=== PATIENT | female | born 1950 | race Caucasian/White ===

== ENCOUNTER 2016-08-13 14:29 | Inpatient (IN) | payer MEDICARE, BC ==
--- NOTE | 2016-10-19 09:06 | HP ---
DATE OF CLINIC: 10/10/2016 MELY HARE : 1950 PLANNED PROCEDURE: Left Total Hip Arthroplasty DATE OF PROCEDURE: October 22, 2016 SURGEON: Je Azul M.D. PCP: Dr. Bakari Negrete ACTIVE PROBLEMS * Allergic Rhinitis * Breast Cancer - Double Massectomy 1994 * Cervicalgia - with hx of bulging disks * Chronic Obstructive Pulmonary Disease Mild * Chronic Sinusitis * Constipation * Diabetes Mellitus Type 2 Without Complication * Esophageal Reflux * Essential Hypertension Benign * Gerd * Herpes Simplex * Lateral Epicondylitis (tennis Elbow) * Neuralgia Postherpetic - right flank * Nonorganic Sleep Apnea Obstructive * Obesity * SPRAIN HIP & THIGH NEC HISTORY OF PRESENT ILLNESS Mely Hare is a 66 year old female. * Medication list reviewed with patient allergy list reviewed with patient. Mrs. Hare is in today pre-operatively for her upcoming left total hip arthroplasty with Dr. Azul on 10/16/16. Patient presents in good spirits but is moderately anxious about her upcoming procedure. She recently got over a cough that she states has been going around. She denies associated symptoms or other recent illness. Patient states she had pulmonary emboli approximately 12 years ago without a known cause. She was placed on Warfarin for a period of time. She denies having lower extremity DVT's prior or at any known point in time. She has not had PE or DVT associated with surgery. She reports a history of shingles intermittently painful along the right chest wall especially after waking following surgery. When pressed further this hasn't occurred since her mastectomy's in 1994. She prefers general anesthesia secondary to a bad experience with spinal anesthesia during her remote . She notes the only tape she can tolerate is 3M Transpore. She is insistent on home health PT for her initial post-op rehabilitation period as her vehicle sets low and would violate hip precautions. Patient's recent consult with Dr. Azul follows: 65-year-old female who I saw initially 08/09/15 for evaluation of left hip. Exam and radiographs were consistent with degenerative disease with the medial and superomedial joint space with periarticular sclerosis. Less significant changes contralateral side. This was her primary limiting problem although she also has degenerative disease of her knees. She was sent to Dr. Samuels for evaluation. She had an intraarticular ultrasound guided injection on 11/30/15 with fairly significant temporary improvement. Unfortunately, she presently is again feeling limited primarily with weight-bearing activities. She also has some rest pain. The problem is most significant with startup, but she also has been unable to stand for long periods. She has been able to tolerate a walking program 30 minutes on a treadmill approximately 2 1/2 miles per hour every other day, but anymore than that "makes her very sore". Pain is primarily in the groin, it is non-radicular. She does have lateral radiation. She is interested in exploring definitive management options. Comorbidities include obesity, insulin dependent diabetes, hypertension. She has a history of a pulmonary embolist in 2003. She is not anticoagulated. She also has a remote history of breast carcinoma s/p bilateral mastectomies in the mid . She is a non-smoker having quit over 25 years ago. She does drink approximately 2 glasses of wine daily. CURRENT MEDICATION * *DME Miscellaneous (not specified) as directed - Breast prosthetics x2Dx: breast cancer, Hx of double mastectomy. C50.919, Z90.13, 99 days, 0 refills * *Supplement Miscellaneous 1 once a day probiotic metamucilgarlic vit dvit [id number] complex with coscal for bones, 0 days, 0 refills * Benicar HCT 40-12.5 MG Tablet 1 once a day, 90 days, Prescribe As Needed. * Fluticasone Propionate 50 MCG/ACT Suspension Use 2 sprays in each nostril daily as directed, 90 days, Prescribe As Needed. * Latanoprost 0.005 % Solution 1 once a day 0 days, 0 refills * Pantoprazole Sodium 40 MG Tablet Delayed Release 1 once a day, 90 days, Prescribe As Needed. * Singulair 10 MG Tablet 1 once a day, 90 days, Prescribe As Needed. PAST MEDICAL/SURGICAL HISTORY Reported: No recent change in medical history. Medical: Cholesterol problems. Stomach problems ulcers and GERD. Arthritic joint problems, cancer breast and skin, Diabetes Mellitus, history of Arthritis, Hypertension, and Venous thrombosis lung 2003. Surgical / Procedural: Eye Surgery cataract surgery on both eyes 09/2014 and Caesarean Section 1984. Tests: Blood pressure was high. : 4, para 2, aborta 2, and history of the : section 1984. Diagnoses: Hypertension Venous thrombosis. Respiratory disorder borderline COPD. Gastric ulcer. Menopause. Diabetes mellitus Type 2 diabetes mellitus Was recently diagnosed with type II diabetes which is diet controlled. Cancer basal cell cancer - tip of nose. 2012 Breast cancer BL mastectomy/chemo Cataracts BL 2014, COPD. Surgical: * Mastectomy bilateral: R 1994, L 1995 * Appendectomy 1980 * Hysterectomy 1984 1984 SOCIAL HISTORY Behavioral: Daily coffee consumption 3-4 cups per day, former smoker quit 08/30/87, and non-smoker quit smoking stopped in August 1987 after smoking 1 pack a day for 20 years. Smoking status: Former smoker. Alcohol: Alcohol 2 glasses of wine a day and alcohol use. Home Environment: Lives with spouse. Work: Occupation retired. ALLERGIES * Albuterol Reaction: body shakes * Amlodipine Reaction: Very high BP * Atenolol * Bandaging Tape * Benzonatate Reaction: Asthma/Shortness of Breath * Biaxin * Clarithromycin Reaction: Skin Rashes/Hives * Codeine Derivatives * Dicloxacillin * Erythromycin * Ibuprofen * Lisinopril Reaction: Coughing * Losartan Potassium * Lovastatin * Penicillins * Pseudoephedrine HCl Reaction: Nausea/Vomiting/Diarrhea * Sulfur * Tarsha Sue FAMILY HISTORY Stroke syndrome Paternal: Alcoholism Maternal: Osteoarthritis rheumatoid Paternal grandfather's: Diabetes mellitus Paternal grandmother's: Cancer breast Maternal grandfather's: Osteoarthritis rheumatoid Stroke syndrome Maternal grandmother's: Migraine headache Fraternal: Respiratory disorder COPD Sororal: Respiratory disorder COPD Cancer breast cancer-mother REVIEW OF SYSTEMS Systemic: No fever and no recent weight change. Head: No head symptoms. Cardiovascular: Cardiovascular symptoms HTN. Pulmonary: No pulmonary symptoms. Gastrointestinal: Gastrointestinal symptoms GERD, HH. Psychological: Psychological symptoms anxiety. Skin: No skin lesions and no rash. PHYSICAL FINDINGS * Vitals taken 10/10/2016 11:36 am BP-Sitting L 164/91 mmHg 100 - 120/56 - 80 BP Cuff Size Regular Pulse Rate-Sitting 83 bpm 50 - 100 Temp-Oral 97.4 F 96 - 101 Height 61.5 in 59 - 68 Weight 203 lbs 96 - 178 Body Mass Index 37.7 kg/m2 Body Surface Area 1.91 m2 Pain Level 4 Ears, Nose, Throat: * ENT: normal. Lungs: * Clear to auscultation. Cardiovascular: * System: normal. Abdomen: * Normal. Neurological: Motor: * Dominant Hand = Right Hand. Patient is an obese female no in acute distress, normal-appearing mood and affect. She has a stiff, antalgic gait walking with a flexed, wide-based posture. This is more notable at startup. The pelvis is level.. Negative Trendelenburg. Evaluation focused on the left hip shows tenderness over the trochanter, mildly tender in the groin, NT in the sciatic notch. ROM is 90 degrees of flexion, 40 degrees of abduction, 45 degrees ER, 10 degrees IR with exacerbation of groin pain. She can adduct past the midline and extend fully. Thigh is soft and NT with no atrophy or asymmetry compared to the contralateral side. Muscle contour is relatively poor. Knee exam shows neutral alignment, medial greater than lateral diffuse tenderness. Motion 0-115 degrees with a normal ligamentous exam. She is NT over the anteromedial proximal tibia. Calf is soft and NT. Distal light touch sensation and motor function are grossly intact and symmetric. Pulses are palpable. Sitting SLR is negative. Right hip girdle shows non-irritable motion with no focal tenderness. TESTS Radiographs obtained today of the left hip and pelvis, compared to prior films from 06/07/15. This shows mild progression, significant medial narrowing, periarticular sclerosis and a large superolateral acetabular osteophyte. There is also an inferomedial osteophyte. Contralateral hip has mild changes. ASSESSMENT * Localized primary osteoarthritis of the right hip DJD, left hip. THERAPY * Patient fall risk screen negative. * Patient eligible for fall risk assessment. * Patient received fall risk assessment. PLAN * OTHER OxyCONTIN 10 MG T12A, 1 po q 12 hours-TO BE USED FOR AFTER SURGERY, 10 days, 0 refills TraMADol HCl 50 MG TABS, 1 po q 6 hours prn pain-TO BE USED FOR AFTER SURGERY, 5 days, 0 refills OxyCODONE HCl 5 MG TABS, 1-2 po q 4 hours for break thru pain if needed-TO BE USED FOR AFTER SURGERY, 5 days, 0 refills Arixtra 2.5 MG/0.5ML SOLN, 1 once a day-TO BE USED FOR AFTER SURGERY, 10 days, 0 refills Vistaril 25 MG CAPS, 1or 2 tablets every 4 to 6 hours as needed, 5 days, 0 refills Lovenox 30 MG/0.3ML SOLN, 30mg subQ every 12 hours, 16 days, 0 refills * Total hip replacement -Left Discussed with patient in detail the limitations, expectations as well as risks and possible complications of surgery including, but not limited to wound problems or infection, neurovascular injury, continued hip pain or dysfunction, postop instability including the possibility of dislocation and/or postop leg length discrepancy, and the possibility of prosthetic wear or failure over time that may require additional operative or non-operative treatment. Patient also realizes the perioperative risks including risks associated with anesthesia and would like to proceed. A full PAR conference was held, questions and concerns addressed and informed consent was obtained. Patient will be sent from my office for completion of the preoperative workup. [facility] consult for perioperative medical management Patient will use Enoxaparin 30 mg subcutaneous every 12 hours for 10 days post-op for DVT prophylaxis. Patient would like their postop PT through [facility] initially with right total hip arthroplasty protocol WBAT, posterior hip precautions. CARE TEAM Bakari Negrete DO [facility] CC: Bakari Negrete DO [facility]
[2016-10-22] MEDS ORDERED: CELECOXIB 200 MG CAPSULE PO ONE (05:30)
[2016-10-22] MEDS ORDERED: GABAPENTIN 600 MG TABLET PO ONE (05:30)
[2016-10-22] MEDS ORDERED: BUPIVACAINE 0.25% (MDV) 24 ML, MORPHINE SULFATE 8 MG, EPINEPHRINE 0.3 MG in SODIUM CHLO... IF PRN (05:30)
[2016-10-22] MEDS ORDERED: TRAMADOL HCL 50 MG TABLET PO ONE (05:30)
[2016-10-22] MEDS ORDERED: ONDANSETRON 4 MG/2ML 2 ML VIAL IV ONE (05:30)
[2016-10-22] MEDS ORDERED: CLINDAMYCIN 900 MG PREMIX 100 ML IV PRN (05:30)
[2016-10-22] MEDS ORDERED: CLONIDINE HCL 0.1 MG/24 HR (7 DAY PATCH) TD SCH (05:30)
[2016-10-22] MEDS ORDERED: BUPIVACAINE 0.25% (MDV) 20 ML in SODIUM CHLORIDE 0.9% FLUSH 20 ML IF PRN (05:30)
[2016-10-22] MEDS ORDERED: FAMOTIDINE 20 MG TABLET PO ONE (05:30)
[2016-10-22] MEDS ORDERED: POLYMYXIN B SULFATE 500,000 UNITS, BACITRACIN 25,000 UNITS in SODIUM CHLORIDE 3 L IRRIG... IR PRN (05:30)
[2016-10-22] MEDS ORDERED: TRANEXAMIC ACID 1,000 MG in SODIUM CHLORIDE 0.9% 100 ML IV PRN (05:30)
[2016-10-22] MEDS ORDERED: OXYCODONE HCL 10 MG TAB.SR PO ONE ×2 (05:30→06:36)
[2016-10-22] MEDS ORDERED: LACTATED RINGERS 1,000 ML ONE (05:36)
[2016-10-22] MEDS ORDERED: IV START KIT ONE ×2 (05:36→06:35)
[2016-10-22] MEDS ORDERED: CLINDAMYCIN 900 MG PREMIX 50 ML IV ONE (06:11)
[2016-10-22] MEDS ORDERED: FAMOTIDINE 20 MG TABLET ONE (06:36)
[2016-10-22] MEDS ORDERED: ONDANSETRON 4 MG/2ML 2 ML VIAL ONE (06:36)
[2016-10-22] MEDS ORDERED: TRAMADOL HCL 50 MG TABLET ONE (06:36)
[2016-10-22] MEDS ORDERED: CLONIDINE HCL 0.1 MG/24 HR (7 DAY PATCH) TD ONE (06:37)
[2016-10-22] MEDS ORDERED: CELECOXIB 200 MG CAPSULE ONE (06:37)
[2016-10-22] MEDS ORDERED: GABAPENTIN 600 MG TABLET ONE (06:37)
[2016-10-22] MEDS ORDERED: MIDAZOLAM HCL 5 MG/5 ML VIAL ONE (06:40)
[2016-10-22] MEDS ORDERED: FENTANYL 100 MCG/2 ML VIAL ONE (06:40)
[2016-10-22] MEDS ORDERED: LIDOCAINE 1% (PRES FREE) 5 ML VIAL ONE (07:05)
[2016-10-22] MEDS ORDERED: BUPIVACAINE 0.5% (PRES FREE) 30 ML VIAL ONE (07:26)
[2016-10-22] MEDS ORDERED: SPINAL PROCEDURAL TRAY 1 EACH ONE (07:27)
[2016-10-22] MEDS ORDERED: PROPOFOL 20 ML IV ONE ×4 (07:51→09:29)
[2016-10-22] MEDS ORDERED: KETAMINE HCL UD SYRINGE 100 MG/2 ML IV ONE (07:52)
[2016-10-22] MEDS ORDERED: ONDANSETRON 4 MG/2ML 2 ML VIAL IV PRN (08:26)
[2016-10-22] MEDS ORDERED: ATROPINE SULFATE 0.4 MG/1 ML VIAL IV PRN (08:26)
[2016-10-22] MEDS ORDERED: PROMETHAZINE HCL 25 MG/ML VIAL IM PRN (08:26)
[2016-10-22] MEDS ORDERED: FENTANYL 100 MCG/2 ML VIAL IV PRN (08:26)
[2016-10-22] MEDS ORDERED: NALOXONE HCL 0.4 MG/ML VIAL IV PRN (08:26)
[2016-10-22] MEDS ORDERED: LACTATED RINGERS 1,000 ML IV SCH (08:30)
--- NOTE | 2016-10-22 09:59 | PCMBPN ---
Brief Post Op Note: Date of Procedure: 10/22/16 Preoperative Diagnosis: DJD left hip Postoperative Diagnosis: same Procedure: left DALE Surgeon: Je Azul MD Assist: Essence Anesthesia: spinal (Bahrke) Condition: stable to PAR Complications: none IV Fluids: 800 mLs of LR Urine Output: 150 mLs Estimated Blood Loss: 200 mLs Tourniquet Time: [N/A] Specimens: [N/A] Implants: Trilock Drains: none
--- NOTE | 2016-10-22 10:53 | OP ---
MELY MACIAS [id number] : 1950 DATE OF SURGERY: October 22, 2016 PREOPERATIVE DIAGNOSIS: Degenerative joint disease left hip POSTOPERATIVE DIAGNOSIS: Same PROCEDURE: Left Total Hip Arthroplasty COMPONENTS: Tri-Lock size 2 standard offset press-fit femoral stem with a 36mm +1.5 Delta ceramic femoral head, 52mm [place] 100 press-fit acetabular shell with a neutral cross-linked polyethylene liner. SURGEON: Latha ASSIST: Chris (MAURO) ANESTHESIA: Spinal per Bahrke EBL: 200 cc URINE OUTPUT: 150 cc IVF REPLACEMENT: Per anesthesia, 800 cc crystalloid. DRAINS: None COMPLICATIONS: None HISTORY: Briefly, patient is a 66-year-old female with clinical and radiographic evidence most consistent with degenerative joint disease of their left hip. They have failed traditional nonoperative measures and at this point desire elective surgical management. For additional details, refer to previously dictated Preoperative History and Physical Exam. A full PAR conference was held, questions and concerns were addressed, and informed consent was obtained. FINDINGS: Fairly anteverted cup, some posterior-superior acetabular osteophytes as well as inferior calcified labrum. There were areas of eburnation in the femoral head. She still had fairly poor motion under anesthesia. PROCEDURE: The patient was taken to the operating room and after previously described anesthesia was placed in the lateral decubitus position on the operating room table and held with the peg board positioner. Liborio prominences were well padded and an axillary roll was placed. The left hip girdle and lower extremity were then prepped and draped out in the usual sterile fashion. Preoperative antibiotics were given empirically. Intraoperative DVT prophylaxis consisted of bilateral mechanical foot pumps. Personal filtration suits were used as was a closed room environment. An oblique ten centimeter incision was made using the minimally invasive guide posterior and extending slightly proximal to the greater trochanter. I extended this another 1 or 2 cm during the dissection given her obesity. We dissected through subcutaneous tissue down to the gluteus fascia. Electrocautery was used at this point and throughout the duration of the case to establish and maintain hemostasis. The gluteus fascia was incised in line with the incision and the muscle fibers split to expose the underlying bursal tissue. Tranexamic acid was infiltrated over 10 minutes prior to incision, 1 gram dose per protocol. A similar 2nd dose was given at initiation of closure. A deep self retaining field retractor was placed. The short external rotators were identified, the piriformis was quite small. This was tagged and reflected with the underlying capsule which was reflected in a U fashion off the femoral neck and tagged as well for later repair. Release of the capsule allowed for dislocation of the hip and the femoral head was brought up into the operative field. A femoral neck cut was made proximal to the lesser trochanter as per our preoperative templating. Given her large size we had an inadvertent small laceration of the skin from the back of the saw blade that was closed at the completion of the procedure, without incident. We then translated the femur anteriorly exposing the acetabulum. The remaining labrum was excised circumferentially. Osteophytes were debrided under direct visualization. We reamed to the true acetabular floor and then incrementally up to a 51 as per our preoperative plan at which point we noted circumferential bleeding cancellous bone. This was trialed at approximately 45 degrees of abduction and 20 degrees of anteversion with good fit and stability matching her [place] position. We then impacted the true acetabular component which was seated completely. An apical hole cover was placed and we impacted the neutral crosslinked polyethylene liner. Attention was then directed back to the femur. The remaining soft tissue was cleared from the piriformis fossa and we use a rongeur and box osteotome to enter the proximal femoral canal followed by the canal seeker and then the broach only system up to a size 3 initially. This was trialed, but still fairly tight. This was trialed with a -2. The hip was then reduced with good stability to 70 degrees of internal rotation in 90 degrees of flexion and full extension with no instability on external rotation. There was good soft tissue balance and approximately equal leg lengths. We therefore took the broach out, recut the femoral neck taking approximately 4mm. This was then re-broached. Given the distal position I settled on a 2 instead of a 3, trialed this with a +1.5 and had greater than 70 degrees of internal rotation at 90 degrees of flexion, full extension with no instability and much improved soft tissue balance. Satisfied, trial components were removed and we impacted the true femoral stem. The trunnion was then cleaned and dried and the femoral head was impacted. The hip was then reduced with stability as previously discussed. Satisfied, we turned our attention to closure. The wound was copiously irrigated with antibiotic pulsatile lavage. We then advanced the capsule and piriformis to the gluteus medius insertion. The gluteus fascia was closed with a running number two PDO StratoFix suture. 1st periarticular injection was given at this point per protocol into the capsule, synovium, gluteus and external rotators. The subcutaneous tissue was closed with interrupted 2-0 and 3-0 Vicryl and the skin was closed with interrupted surgical clips given her list of allergies. We then used Transpore tape and a sterile dressing. The 2nd periarticular injection was done at this point per protocol into the subcutaneous tissue superiorly and anteriorly to the incision. A sterile hip dressing was then applied, the patient was returned to the supine position, transferred to their hospital bed, and sent to the postoperative recovery room in stable condition. They tolerated the procedure well. Sponge, instrument, and needle count were correct. WAN/mrw CC: Bakari Negrete MD [facility]
--- NOTE | 2016-10-22 11:28 | RAD ---
PELVIS HISTORY: Postop left DALE COMPARISONS: Left hip series 05/01/2016 FINDINGS: Single supine view of the pelvis demonstrates postsurgical change from left total hip arthroplasty. Hardware appears intact given the single projection. No fracture or dislocation given the single projection. Postoperative africa and skin gas are noted. The upper portions of the pelvis are not visualized off the edge of the image. IMPRESSION: Satisfactory postoperative exam.
[2016-10-22] MEDS ORDERED: TRIAMCINOLONE ACET CREAM 0.1% 30 APPLIC/15 G TUBE TP PRN (11:45)
[2016-10-22] MEDS ORDERED: HYDROMORPHONE HCL 0.5 MG/0.5 ML SYRINGE IV PRN (11:45)
[2016-10-22] MEDS ORDERED: FLUTICASONE PROPIONATE 50 MCG/SPRAY 120 SPRAYS/16 G INH NS PRN (11:45)
[2016-10-22] MEDS ORDERED: CALCIUM CARBONATE 500 MG TAB.CHEW PO PRN (11:45)
[2016-10-22] MEDS ORDERED: PUMP TUBING ONE (13:16)
[2016-10-22] MEDS: SODIUM CHLORIDE 0.9% 1,000 ML IV SCH ×2 (13:22→21:11)
[2016-10-22] MEDS: ONDANSETRON 4 MG/2ML 2 ML VIAL IV PRN ×2 (13:50→19:23)
[2016-10-22 14:21] VITALS: BMI 36.9
[2016-10-22] MEDS: CLINDAMYCIN 600 MG PREMIX 600 MG in Premix (D5W) 50 ml 1 EACH IV SCH ×2 (14:59→19:53)
[2016-10-22] MEDS: ACETAMINOPHEN 500 MG TABLET PO SCH ×2 (18:25→23:30)
[2016-10-22] MEDS: KETOROLAC TROMETHAMINE 30 MG/ML 1 ML VIAL IV PRN (19:53)
[2016-10-22] MEDS: DOCUSATE SODIUM 100 MG CAPSULE PO SCH (21:10)
[2016-10-22] MEDS: MONTELUKAST SODIUM 10 MG TABLET PO SCH (21:15)
[2016-10-22] MEDS: ASCORBIC ACID 500 MG TABLET PO SCH (21:15)
[2016-10-23] MEDS: SODIUM CHLORIDE 0.9% 1,000 ML IV SCH ×3 (04:16→20:24)
[2016-10-23] MEDS ORDERED: REMOVE PATCH 1 EACH UNIT TD SCH (05:30)
[2016-10-23] MEDS: ACETAMINOPHEN 500 MG TABLET PO SCH ×4 (05:53→23:23)
[2016-10-23] MEDS: KETOROLAC TROMETHAMINE 30 MG/ML 1 ML VIAL IV PRN (05:56)
[2016-10-23 06:05] LABS: HEMATOCRIT 35.6 % (37.0-47.0); HEMOGLOBIN 11.7 gm/l (12.0-16.0); MEAN CELL VOLUME 93.9 fl (81.0-99.0); MEAN CORPUSCULAR HEMOGLOBIN 30.9 pg (27.0-31.0); MEAN CORPUSCULAR HGB CONC 32.9 g/dl (33.0-37.0); RED CELL DISTRIBUTION WIDTH 12.9 % (11.5-14.5)
--- NOTE | 2016-10-23 07:23 | CONS ---
Ashley Hare [id number] DATE OF ADMISSION: 10/22/2016 PHYSICIAN REQUESTING CONSULTATION: Dr. Je Azul REASON FOR CONSULTATION: Assist with medical management in patient status post left total hip arthroplasty. HISTORY OF PRESENT ILLNESS: The patient is a 66-year-old female who is post operative day zero status post left total hip arthroplasty. She reports doing well. She had already stood up earlier today although, had a fair amount of pain with this. She did have emesis x1 about one hour prior. No respiratory complaints, but was given some oxygen. PAST MEDICAL HISTORY: History of breast cancer status post bilateral mastectomy, history of allergic rhinitis, history of diabetes mellitus type 2 which is diet controlled, her A1c have been below 6.5 without any extra medications, history of esophageal reflux disease, history of hypertension, history of postherpetic neuralgia on her right side for the last 35 plus years, history of obesity, prior history of pulmonary embolus 2000, and history of elevated intraocular pressure treated with eye drops. PAST SURGICAL HISTORY: Remarkable for bilateral mastectomy, history of in 1980 and 1984, history of appendectomy, history of hysterectomy and basal cell treatment on her nose is seen in the old records. ALLERGIES: ARE ADHESIVES, AMLODIPINE, TESSALON, CLARITHROMYCIN, DICLOXACILLIN, ERYTHROMYCIN, ALBUTEROL, PENICILLINS, CODEINE, GUAIFENESIN, IBUPROFEN, LISINOPRIL, LOSARTAN, LOVASTATIN, PRAVASTATIN, PSEUDOEPHEDRINE, STATINS IN GENERAL, ATENOLOL, TRIAMCINOLONE, NASACOT, AND SULFA. HOME MEDICATIONS: 1. Os hien 500 D twice daily. 2. Vitamin B12 1000 mcg by mouth daily. 3. Fluticasone 2 sprays each nostril daily as needed. 4. Glucosamine chondroitin twice daily. 5. Lantanoprost 0.005 1 drop both eyes daily. 6. Montelukast 10 mg by mouth every evening. 7. Benicar HCT 40/12.5 by mouth daily. 8. Pantoprazole 40 mg by mouth daily. 9. Systane eye drops as needed. 10. Metamucil packet 3.4 gm daily. 11. Kenalog Triamcinolone topically as needed. 12. Vitamin B complex 150 mg daily. 13. Vitamin D3 1000 units daily. 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 She has been 40 years and has two kids. History of smoking having quit in 1987. No pets. She goes to [facility]. FAMILY HISTORY: Father at 64 of alcoholism. Mom at 73 of breast cancer and had a history of rheumatoid arthritis. There is no family history of deep venous thrombosis. REVIEW OF SYSTEMS: Eyes have been okay. She has already put her drops in for the day. Ears are okay. Nose is okay. Mouth is dry. No respiratory complaints. No heart complaints. No stomach pains although, she did have some vomiting about an hour prior. She has her catheter in, but no urinary complaints. She does have a history of hemorrhoids treated with Preparation H topically. She has some discomfort in her left knee. 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 No history of strokes. No other skin complaints. She notes she has difficulty lying flat in bed because of postnasal drainage and a hiatal hernia and so feels like she has a hard time with breathing and her throat is closing. She also states she would not tolerate CPAP due to claustrophobia. PHYSICAL EXAMINATION: GENERAL: Nontoxic female. VITAL SIGNS: Temperature 97.7, pulse 74, blood pressure 149/91, respirations 18, 94% saturation on 2 liters. HEENT: Head is normocephalic, atraumatic. Eyes are unremarkable. Ears: Tympanic membranes normal bilaterally. Mild injection noted on the left. No discharge. Oropharynx grossly unremarkable. Dentition is good. NECK: Supple without masses or adenopathy. No JVD is noted. LUNGS: Clear to auscultation bilaterally. HEART: Regular rate and rhythm without murmur. ABDOMEN: Soft, nontender, nondistended. Bowel sounds are normal. No rebound, no guarding. Some central obesity is noted. BREAST: Deferred, but she has had mastectomies. EXTREMITIES: Arms are unremarkable. Pulses good bilaterally. Left hip with a dressing present which is clean, dry, and intact. Her left thigh is nontender. She has compression devices on her lower extremities bilaterally. She is able to wiggle her toes on both sides. NEUROLOGIC: She is alert. Cranial nerves are intact. She is oriented and answers appropriately. PREOPERATIVE LABS: Showed a white count of 7.3, hemoglobin 14.9, platelets 211. INR is 0.95. Sodium 138, potassium 4.7, chloride 100, CO2 30, BUN 17, creatinine 0.8, glucose 148. A1c was previously 6.0. LFT's were normal. Calcium 9.6. Urinalysis was normal. DIAGNOSTICS: Chest x-ray 07/18/2016 was normal. [facility] at [facility] normal sinus rhythm at 73 beats per minute, OK 182, QRS 86, QTC 386, but the date on this is not clear. ASSESSMENT AND PLAN: 1. Status post left total hip arthroplasty postoperative day one. Appreciate orthopedic, therapeutic, and nursing care. 2. History of diabetes mellitus type 2 with diet control. Will anticipate capillary blood glucoses and sliding scale as needed. 3. Morbid obesity with body mass index of 36.9 affecting care and recovery. 4. History of suspected postherpetic neuralgia. Did discuss choice of Lidocaine with her, but she reports being intolerant to all adhesives, so will defer to her primary care physician. 5. History of pulmonary embolism 2000. She had also had follow up normal's in 2004 and 2009. She is on mechanical treatment. Encourage activity and will be monitoring for any recurrence. 6. History of hypertension. We will continue on medications. 7. History of hemorrhoids. Topical treatment with Preparation H if needed. 8. History of reflux disease. Continue on Protonix. 9. Remote history of breast cancer status post bilateral mastectomy. 10. Venous thrombosis prophylaxis. Anticipate aspirin, mechanical means, and encourage activity. Will follow with you. JOB: [id number] CC: Dr. Caden Azul
[2016-10-23] MEDS: ENOXAPARIN SODIUM 30 MG/0.3 ML SYRINGE SUB-Q SCH ×2 (08:00→20:21)
[2016-10-23] MEDS: LATANOPROST 0.005% 50 GTTS/2.5 ML BOT SOLN.DROP OU SCH (08:15)
[2016-10-23] MEDS: DOCUSATE SODIUM 100 MG CAPSULE PO SCH ×2 (08:15→20:21)
[2016-10-23] MEDS: MULTIVITAMINS 1 TAB TABLET PO SCH (08:15)
[2016-10-23] MEDS: PANTOPRAZOLE 40 MG TABLET DR PO SCH (08:15)
[2016-10-23] MEDS: ASCORBIC ACID 500 MG TABLET PO SCH ×2 (08:15→20:22)
--- NOTE | 2016-10-23 08:22 | PDOC43 ---
- Subjective Findings: Pt seen this morning. Awake and doing fair. Pain seems ok as long as she is not moving. Reports n/v last evening but is better this am. Remains quite concerned with hip motion and hip precautions. She is reassured. Subjective: Reports Pain Tolerable, Reports Nausea, Denies Chest Pain, Denies Shortness of Breath, Denies Vomiting, Denies Fever - Objective Vital Signs Temperature 98.0 F 10/23/16 06:24 Pulse Rate 65 10/23/16 06:24 Respiratory Rate 18 10/23/16 06:24 Blood Pressure 134/78 10/23/16 06:24 O2 Saturation by Pulse Oximetry 98 10/23/16 06:24 Oxygen Delivery Method Nasal Cannula Oxygen Flow Rate 2 Laboratory 10/23/16 05:30 10/23/16 05:30 10/23/16 10/22/16 10/22/16 05:30 21:05 18:31 RBC 3.79 L MCHC 32.9 L POC Capillary Glucose 154 H 152 H Calcium 8.0 L Active Medication Orders Category Date Time Status Acetaminophen [Tylenol] Med 10/22/16 17:30 Active 1,000 mg PO Q6H Ascorbic Acid [Vitamin C] Med 10/22/16 21:00 Active 500 mg PO BID Bisacodyl [Dulcolax] Med 10/25/16 10:03 Active 10 mg [place] DAILY PRN Calcium Carbonate [Tums] Med 10/22/16 11:45 Active 1,000 - 2,000 mg PO Q2H PRN Docusate Sodium [Colace] Med 10/22/16 21:00 Active 100 mg PO BID Enoxaparin Sodium [Lovenox] Med 10/23/16 08:05 Active 30 mg SUB-Q Q12H Fluticasone Prop 50 Mcg Nasal [Flonase Nasal [place]] Med 10/22/16 11:45 Active 2 sprays NS DAILY PRN Hydromorphone HCl [Dilaudid] Med 10/22/16 11:45 Active 0.5 mg IV Q1H PRN Ketorolac Tromethamine [Toradol] Med 10/22/16 11:45 Active 30 mg IV Q6H PRN Latanoprost 0.005% [Xalatan] Med 10/23/16 09:00 Active 1 gtts OU DAILY Montelukast Sodium [Singulair] Med 10/22/16 20:00 Active 10 mg PO QPM Multivitamins [One-A-Day] Med 10/23/16 09:00 Active 1 tab PO DAILY Olmesartan Medoxomil [Benicar] Med 10/23/16 09:00 Pending 1 mg PO DAILY Ondansetron 4 mg/2ml Vial [Zofran] Med 10/22/16 11:45 Active 4 - 6 mg IV Q6H PRN Oxycodone HCl [Roxicodone] Med 10/22/16 11:45 Active 5 - 10 mg PO Q4H PRN Pantoprazole Sodium [Protonix] Med 10/23/16 09:00 Active 40 mg PO DAILY Remove Patch Med 10/23/16 10:03 Once 1 each TD X1 ONE Sodium Chloride 0.9% 1,000 ml Med 10/22/16 11:45 Active IV 125 mls/hr Sodium Chloride 0.9% Flush [Normal Saline 10ml Flush] Med 10/22/16 11:45 Active 10 - 50 ml IV PRN PRN Tramadol HCl [Ultram] Med 10/22/16 11:45 Active 50 mg PO Q6H PRN Triamcinolone Acet 0.1% [Kenalog] Med 10/22/16 11:45 Active 1 applic TP DAILY PRN Intake and Output 10/21/16 10/22/16 10/23/16 23:59 23:59 23:59 Intake Total 1562 1948 Output Total 650 320 Balance 912 1628 General: Afebrile HEENT: Atraumatic Lungs: Normal Air Movement Abdomen: Non-Distended Skin: Normal Color Neurological: Alert, Oriented x 4 Psych/Mental Status: Normal Affect, Anxious - Left Lower Extremity Motor: Extensor Hallucis Longus: 5/5, Tibialis Anterior: 5/5, Gastrocnemius: 5/5 , Peroneals: 5/5, Quadriceps: 2/5 Gross Sensation to Light Touch: Present: Deep Peroneal Nerve, Superficial Peroneal Nerve Capillary Refill: < 3 Seconds Motion: Calf soft NT Mod assist with SLR. Min active Rom to knee flexion - Problems (1) Status post left hip replacement Status: AcuteAssessment/Plan: Pod #1 1. Physical Therapy:Mobilize with PT/OT. Encouraged bed exercise and reassured hip precautions 2. Pain Control:Per orders 3. DVT Prophylaxis: HX of PE. Will start lovenox today per orders. Mobility and foot pumps 4. Disposition:Doing fair at this point 5. Medical Issues:Hx DM, PE. Appreciate hospitalist care and consult.
[2016-10-23] MEDS: OXYCODONE HCL 5 MG TABLET PO PRN ×2 (08:56→16:51)
[2016-10-23] MEDS ORDERED: HYDROCHLOROTHIAZIDE 12.5 MG CAP PO SCH (09:00)
[2016-10-23] MEDS ORDERED: OLMESARTAN PO SCH (09:00)
[2016-10-23] MEDS ORDERED: [UNRECOGNIZED DRUG - OTHER] PO SCH (09:00)
[2016-10-23] MEDS ORDERED: HCTZ PO SCH (09:00)
[2016-10-23] MEDS: OLMESARTAN MEDOXOMIL 20 MG TABLET PO SCH (09:40)
[2016-10-23] MEDS ORDERED: REMOVE PATCH 1 EACH UNIT TD ONE (10:03)
--- NOTE | 2016-10-23 12:35 | PDOC43 ---
- Subjective Chief Complaint: Left hip pain Subjective: Reports Pain Tolerable, Reports Tolerating Diet Well, Reports Adequate Oral Intake, Denies Shortness of Breath, Denies Chest Pain, Denies Abdominal Pain, Denies Fever - Objective Vital Signs Temperature 98.5 F 10/23/16 11:35 Pulse Rate 69 10/23/16 11:35 Respiratory Rate 20 10/23/16 11:35 Blood Pressure 128/73 10/23/16 11:35 O2 Saturation by Pulse Oximetry 95 10/23/16 11:35 Oxygen Delivery Method Room Air Oxygen Flow Rate 0 Intake and Output 10/22/16 10/23/16 10/24/16 06:59 06:59 06:59 Intake Total 3510 439 Output Total 970 Balance 2540 439 General: Alert, Oriented x3, Cooperative, No Acute Distress HEENT: Mucous membr. moist/pink Lungs: Clear to Auscultation Bilaterally Cardiovascular: Regular Rate and Rhythm Abdomen: Soft, Normal Bowel Sounds, Non-Distended, No Tenderness Extremities: Normal Cap Refill, No Edema Skin: Warm, Dry, Intact Wound: Dressing Clean/Dry/Intact Laboratory 10/23/16 05:30 10/23/16 05:30 10/23/16 10/23/16 10/22/16 11:34 05:30 21:05 RBC 3.79 L MCHC 32.9 L POC Capillary Glucose 142 H 154 H Calcium 8.0 L 10/22/16 18:31 RBC MCHC POC Capillary Glucose 152 H Calcium Current Medications: Current meds reviewed in EMR. - Problems: Assessment/Plan (1) Status post left hip replacement Status: AcuteAssessment/Plan: S/P left hip replacement performed on 10/22 (2) Diabetes Qualifiers: Diabetes mellitus type: type 2 Diabetes mellitus complication status: without complication Diabetes mellitus terminal gauger supervisor insulin use: without terminal gauger supervisor use Qualifier Code: (E11.9) Type 2 diabetes mellitus without complications Status: ChronicAssessment/Plan: diet controlled (3) Hypertension Qualifiers: Hypertension type: essential hypertension Qualifier Code: (I10) Essential (primary) hypertension Status: AcuteAssessment/Plan: Parameters written for BP meds (4) History of pulmonary embolism Status: ChronicAssessment/Plan: On Lovenox for VTE prophylaxis with plans to cont. on discharge( will administer) (5) GERD (gastroesophageal reflux disease) Qualifiers: Esophagitis presence: esophagitis presence not specified Qualifier Code : (K21.9) Gastro-esophageal reflux disease without esophagitis Status: Acute Assessment/Plan: Cont Protonix (6) Post herpetic neuralgia Status: ChronicAssessment/Plan: stable (7) History of breast cancer in female Status: ChronicAssessment/Plan: in remission VTE Prophylaxis: Lovenox Disposition: home in 1-2 days
[2016-10-23] MEDS ORDERED: LATANOPROST 0.005% 50 GTTS/2.5 ML BOT SOLN.DROP OU SCH (13:15)
[2016-10-23] MEDS: TRAMADOL HCL 50 MG TABLET PO PRN ×2 (13:55→22:01)
[2016-10-23 15:28] LABS: URINE BILIRUBIN NEGATIVE (NEGATIVE); URINE BLOOD TRACE (NEGATIVE); URINE GLUCOSE (UA) NEGATIVE (NEGATIVE); URINE LEUKOCYTE ESTERASE TRACE (NEGATIVE); URINE NITRITE NEGATIVE (NEGATIVE); URINE PROTEIN 1+ (NEGATIVE); URINE UROBILINOGEN NORMAL (0-1 mg/dl)
[2016-10-23 15:34] LABS: URINE APPEARANCE CLEAR; URINE COLOR AMBER
[2016-10-23 16:08] LABS: URINE BACTERIA RARE; URINE MUCUS 2+; URINE RBC 0-1 /hpf; URINE WBC 0-1 /hpf
[2016-10-23] MEDS: MONTELUKAST SODIUM 10 MG TABLET PO SCH (20:22)
[2016-10-24] MEDS: ACETAMINOPHEN 500 MG TABLET PO SCH ×5 (05:35→22:32)
[2016-10-24] MEDS: SODIUM CHLORIDE 0.9% 1,000 ML IV SCH ×3 (05:53→22:31)
[2016-10-24 06:11] LABS: HEMATOCRIT 34.3 % (37.0-47.0); HEMOGLOBIN 11.2 gm/l (12.0-16.0)
[2016-10-24] MEDS: ENOXAPARIN SODIUM 30 MG/0.3 ML SYRINGE SUB-Q SCH ×2 (08:28→21:16)
[2016-10-24] MEDS: DOCUSATE SODIUM 100 MG CAPSULE PO SCH ×2 (08:47→21:16)
[2016-10-24] MEDS: OLMESARTAN MEDOXOMIL 20 MG TABLET PO SCH (08:47)
[2016-10-24] MEDS: MULTIVITAMINS 1 TAB TABLET PO SCH (08:47)
[2016-10-24] MEDS: LATANOPROST 0.005% 50 GTTS/2.5 ML BOT SOLN.DROP OU SCH (08:47)
[2016-10-24] MEDS: ASCORBIC ACID 500 MG TABLET PO SCH ×2 (08:47→21:16)
[2016-10-24] MEDS: TRAMADOL HCL 50 MG TABLET PO PRN (08:47)
[2016-10-24] MEDS: PANTOPRAZOLE 40 MG TABLET DR PO SCH (08:47)
--- NOTE | 2016-10-24 10:04 | PDOC43 ---
- Subjective Chief Complaint: Left hip pain Subjective: Reports Pain Tolerable, Reports Tolerating Diet Well, Denies Fever - Objective Vital Signs Temperature 97.9 F 10/24/16 07:30 Pulse Rate 71 10/24/16 07:30 Respiratory Rate 16 10/24/16 07:30 Blood Pressure 128/73 10/24/16 07:30 O2 Saturation by Pulse Oximetry 94 10/24/16 07:30 Oxygen Delivery Method Room Air Oxygen Flow Rate 0 Intake and Output 10/23/16 10/24/16 10/25/16 06:59 06:59 06:59 Intake Total 3510 1464 Output Total 970 250 Balance 2540 1214 General: Alert, Oriented x3, Cooperative, No Acute Distress HEENT: Mucous membr. moist/pink Lungs: Clear to Auscultation Bilaterally Cardiovascular: Regular Rate and Rhythm Abdomen: Soft, Tenderness, Normal Bowel Sounds, Non-Distended Extremities: No Edema Wound: Other (some blistering from tape reaction at surgical site) Laboratory 10/24/16 05:30 10/23/16 05:30 10/24/16 10/23/16 10/23/16 07:20 20:20 16:42 POC Capillary Glucose 106 H 170 H 127 H 10/23/16 11:34 POC Capillary Glucose 142 H Current Medications: Current meds reviewed in EMR. - Problems: Assessment/Plan (1) Status post left hip replacement Status: AcuteAssessment/Plan: S/P left hip replacement performed on 10/22, making slow progress with therapy but anticipate home tomorrow (2) Diabetes Qualifiers: Diabetes mellitus type: type 2 Diabetes mellitus complication status: without complication Diabetes mellitus senior living insulin use: without senior living use Qualifier Code: (E11.9) Type 2 diabetes mellitus without complications Status: ChronicAssessment/Plan: diet controlled (3) Hypertension Qualifiers: Hypertension type: essential hypertension Qualifier Code: (I10) Essential (primary) hypertension Status: AcuteAssessment/Plan: Parameters written for BP meds (4) History of pulmonary embolism Status: ChronicAssessment/Plan: On Lovenox for VTE prophylaxis with plans to cont. on discharge( will administer) (5) GERD (gastroesophageal reflux disease) Qualifiers: Esophagitis presence: esophagitis presence not specified Qualifier Code : (K21.9) Gastro-esophageal reflux disease without esophagitis Status: Acute Assessment/Plan: Cont Protonix (6) Post herpetic neuralgia Status: ChronicAssessment/Plan: stable (7) History of breast cancer in female Status: ChronicAssessment/Plan: in remission (8) Acute blood loss anemia Status: AcuteAssessment/Plan: mild HGB down to 11.2 - no intervention VTE Prophylaxis: Lovenox Disposition: home in am if making adequate progress
--- NOTE | 2016-10-24 10:14 | PDOC43 ---
- Subjective Findings: Ortho POD 2 L DALE Patient awake, A and O times 4 this am OOB to recliner which she prefers. Patient moderately anxious about having minimal flatus, no bm, wound site, therapies. Pain is well controlled. Denies CP/SOB/NV/GERD/abdominal distension/ belching or pain. Fair progress with day one ambulatory PT/OT. Subjective: Reports Other, Denies Chest Pain, Denies Shortness of Breath, Denies Nausea, Denies Vomiting, Denies Fever - Objective Vital Signs Temperature 97.9 F 10/24/16 07:30 Pulse Rate 71 10/24/16 07:30 Respiratory Rate 16 10/24/16 07:30 Blood Pressure 128/73 10/24/16 07:30 O2 Saturation by Pulse Oximetry 94 10/24/16 07:30 Oxygen Delivery Method Room Air Oxygen Flow Rate 0 Laboratory 10/24/16 05:30 10/23/16 05:30 10/24/16 10/23/16 10/23/16 07:20 20:20 16:42 POC Capillary Glucose 106 H 170 H 127 H 10/23/16 11:34 POC Capillary Glucose 142 H Active Medication Orders Category Date Time Status Acetaminophen [Tylenol] Med 10/22/16 17:30 Active 1,000 mg PO Q6H Ascorbic Acid [Vitamin C] Med 10/22/16 21:00 Active 500 mg PO BID Bisacodyl [Dulcolax] Med 10/25/16 10:03 Active 10 mg [place] DAILY PRN Calcium Carbonate [Tums] Med 10/22/16 11:45 Active 1,000 - 2,000 mg PO Q2H PRN Docusate Sodium [Colace] Med 10/22/16 21:00 Active 100 mg PO BID Enoxaparin Sodium [Lovenox] Med 10/23/16 08:05 Active 30 mg SUB-Q Q12H Fluticasone Prop 50 Mcg Nasal [Flonase Nasal [place]] Med 10/22/16 11:45 Active 2 sprays NS DAILY PRN Hydromorphone HCl [Dilaudid] Med 10/22/16 11:45 Active 0.5 mg IV Q1H PRN Latanoprost 0.005% [Xalatan] Med 10/23/16 09:00 Active 1 gtts OU DAILY Montelukast Sodium [Singulair] Med 10/22/16 20:00 Active 10 mg PO QPM Multivitamins [One-A-Day] Med 10/23/16 09:00 Active 1 tab PO DAILY Olmesartan Medoxomil [Benicar] Med 10/23/16 09:00 Active 1 mg PO DAILY Ondansetron 4 mg/2ml Vial [Zofran] Med 10/22/16 11:45 Active 4 - 6 mg IV Q6H PRN Oxycodone HCl [Roxicodone] Med 10/22/16 11:45 Active 5 - 10 mg PO Q4H PRN Pantoprazole Sodium [Protonix] Med 10/23/16 09:00 Active 40 mg PO DAILY Polyethylene Glycol 3350 [Miralax] Med 10/24/16 09:58 Active 17 g PO DAILY PRN Sodium Chloride 0.9% 1,000 ml Med 10/22/16 11:45 Active IV 125 mls/hr Sodium Chloride 0.9% Flush [Normal Saline 10ml Flush] Med 10/22/16 11:45 Active 10 - 50 ml IV PRN PRN Sodium Chloride 0.9% Flush [Normal Saline 10ml Flush] Med 10/23/16 17:00 Active 10 ml IV Q8HR Tramadol HCl [Ultram] Med 10/22/16 11:45 Active 50 mg PO Q6H PRN Triamcinolone Acet 0.1% [Kenalog] Med 10/22/16 11:45 Active 1 applic TP DAILY PRN Intake and Output 10/22/16 10/23/16 10/24/16 23:59 23:59 23:59 Intake Total 1562 3012 400 Output Total 650 370 200 Balance 912 2642 200 Neurological: No Normal Gait (ambulating with a walker post L DALE) Peripheral Pulses: Left Posterior Tibialis: 1+, Left Dorsalis Pedis: 1+ - Left Lower Extremity Incision: Well Approximated (please see nursing report on visual, intact, pressure blisters, moderate edema. Thigh and calf are SNT. Will assess further when patient up with PT or transfers.) Motor: Extensor Hallucis Longus: 5/5, Tibialis Anterior: 5/5, Gastrocnemius: 5/5 , Peroneals: 5/5, Quadriceps: 4/5 Gross Sensation to Light Touch: Present: Deep Peroneal Nerve, Superficial Peroneal Nerve, Medial Plantar Nerve, Lateral Plantar Nerve, Sural Nerve, Saphenous Nerve Motion: Currently in a recliner however hip flexion to 60, abduction to 15. Ankle full AROM. - Disposition Ortho POD 2 L DALE 1. Anticoagulation with Lovenox 30mg subcutaneously q 12 hours for 2 weeks, pneumatic compression, TEDS, and mobility. 2. Pain management per written orders. Call for modification. 3. PT/OT BID post L DALE, WBAT, Posterior hip precautions. 4. Encourage incentive spirometry and bed exercises q hour when awake. 5. Dressing change prn. Currently "OP site" seems to be adequate without hypersensitivity. 6. Appreciate Hospitalist's care and consult.
[2016-10-24] MEDS: OXYCODONE HCL 5 MG TABLET PO PRN ×4 (11:26→22:12)
[2016-10-24] MEDS: POLYETHYLENE GLYCOL 3350 17 G POWD.SUSP PO PRN (11:33)
[2016-10-24] MEDS: MONTELUKAST SODIUM 10 MG TABLET PO SCH (21:16)
[2016-10-25] MEDS: SODIUM CHLORIDE 0.9% 1,000 ML IV SCH ×2 (04:28→12:12)
[2016-10-25] MEDS: ACETAMINOPHEN 500 MG TABLET PO SCH ×2 (04:54→12:12)
[2016-10-25] MEDS: TRAMADOL HCL 50 MG TABLET PO PRN (04:54)
[2016-10-25 05:59] LABS: HEMATOCRIT 35.1 % (37.0-47.0); HEMOGLOBIN 11.5 gm/l (12.0-16.0)
[2016-10-25 07:37] VITALS: BP 145/80
[2016-10-25] MEDS: ENOXAPARIN SODIUM 30 MG/0.3 ML SYRINGE SUB-Q SCH (08:24)
[2016-10-25] MEDS: DOCUSATE SODIUM 100 MG CAPSULE PO SCH (08:26)
[2016-10-25] MEDS: PANTOPRAZOLE 40 MG TABLET DR PO SCH (08:26)
[2016-10-25] MEDS: MULTIVITAMINS 1 TAB TABLET PO SCH (08:26)
[2016-10-25] MEDS: ASCORBIC ACID 500 MG TABLET PO SCH (08:26)
[2016-10-25] MEDS: LATANOPROST 0.005% 50 GTTS/2.5 ML BOT SOLN.DROP OU SCH (08:26)
[2016-10-25] MEDS: OXYCODONE HCL 5 MG TABLET PO PRN ×2 (08:26→14:08)
[2016-10-25] MEDS: OLMESARTAN MEDOXOMIL 20 MG TABLET PO SCH (08:26)
[2016-10-25] MEDS: POLYETHYLENE GLYCOL 3350 17 G POWD.SUSP PO PRN (08:27)
[2016-10-25] MEDS ORDERED: HYDROXYZINE PAMOATE 25 MG CAPSULE PO ONE (09:00)
[2016-10-25] MEDS ORDERED: BISACODYL 10 MG SUP PR PRN (10:03)
--- NOTE | 2016-10-25 10:03 | PDOC43 ---
- Subjective Findings: Ortho POD 3 L DALE Patient awake, A and O times 4 this am and in good spirits. Feels overall the hip is doing well as she progressed more with ambulatory PT on day 2. Her pain is well controlled. She's still concerned about tape reactions and blistering in her bandage area. No other c/o. She denies CP/SOB/NV. Taking a solid diabetic diet and positive flatus, no BM yet. Subjective: Denies Chest Pain, Denies Shortness of Breath, Denies Nausea, Denies Vomiting, Denies Fever - Objective Vital Signs Temperature 98.1 F 10/25/16 07:36 Pulse Rate 87 10/25/16 07:36 Respiratory Rate 16 10/25/16 07:36 Blood Pressure 145/80 10/25/16 07:36 O2 Saturation by Pulse Oximetry 94 10/25/16 07:36 Oxygen Delivery Method Room Air Oxygen Flow Rate 0 Laboratory 10/25/16 05:30 10/23/16 05:30 10/25/16 10/24/16 10/24/16 07:48 21:10 17:24 POC Capillary Glucose 108 H 173 H 109 H 10/24/16 11:32 POC Capillary Glucose 135 H Active Medication Orders Category Date Time Status Acetaminophen [Tylenol] Med 10/22/16 17:30 Active 1,000 mg PO Q6H Ascorbic Acid [Vitamin C] Med 10/22/16 21:00 Active 500 mg PO BID Bisacodyl [Dulcolax] Med 10/25/16 10:03 Active 10 mg [place] DAILY PRN Calcium Carbonate [Tums] Med 10/22/16 11:45 Active 1,000 - 2,000 mg PO Q2H PRN Docusate Sodium [Colace] Med 10/22/16 21:00 Active 100 mg PO BID Enoxaparin Sodium [Lovenox] Med 10/23/16 08:05 Active 30 mg SUB-Q Q12H Fluticasone Prop 50 Mcg Nasal [Flonase Nasal [place]] Med 10/22/16 11:45 Active 2 sprays NS DAILY PRN Hydromorphone HCl [Dilaudid] Med 10/22/16 11:45 Active 0.5 mg IV Q1H PRN Latanoprost 0.005% [Xalatan] Med 10/23/16 09:00 Active 1 gtts OU DAILY Montelukast Sodium [Singulair] Med 10/22/16 20:00 Active 10 mg PO QPM Multivitamins [One-A-Day] Med 10/23/16 09:00 Active 1 tab PO DAILY Olmesartan Medoxomil [Benicar] Med 10/23/16 09:00 Active 1 mg PO DAILY Ondansetron 4 mg/2ml Vial [Zofran] Med 10/22/16 11:45 Active 4 - 6 mg IV Q6H PRN Oxycodone HCl [Roxicodone] Med 10/22/16 11:45 Active 5 - 10 mg PO Q4H PRN Pantoprazole Sodium [Protonix] Med 10/23/16 09:00 Active 40 mg PO DAILY Polyethylene Glycol 3350 [Miralax] Med 10/24/16 09:58 Active 17 g PO DAILY PRN Sodium Chloride 0.9% 1,000 ml Med 10/22/16 11:45 Active IV 125 mls/hr Sodium Chloride 0.9% Flush [Normal Saline 10ml Flush] Med 10/22/16 11:45 Active 10 - 50 ml IV PRN PRN Sodium Chloride 0.9% Flush [Normal Saline 10ml Flush] Med 10/23/16 17:00 Active 10 ml IV Q8HR Tramadol HCl [Ultram] Med 10/22/16 11:45 Active 50 mg PO Q6H PRN Triamcinolone Acet 0.1% [Kenalog] Med 10/22/16 11:45 Active 1 applic TP DAILY PRN Intake and Output 10/23/16 10/24/16 10/25/16 23:59 23:59 23:59 Intake Total 3012 880 300 Output Total 370 650 610 Balance 2642 230 -310 Neurological: No Normal Gait Peripheral Pulses: Left Posterior Tibialis: 1+, Left Dorsalis Pedis: 1+ - Left Lower Extremity Incision: Shadow Drainage (minimal), Erythema, Well Approximated (moderate sacral, glut and thigh edema but SNT, calf is SNT), No Drainage (tape rash and mild blistering, benign in appearance) Motor: Extensor Hallucis Longus: 5/5, Tibialis Anterior: 5/5, Gastrocnemius: 5/5 , Peroneals: 5/5, Quadriceps: 4/5 Gross Sensation to Light Touch: Present: Deep Peroneal Nerve, Superficial Peroneal Nerve, Medial Plantar Nerve, Lateral Plantar Nerve, Sural Nerve, Saphenous Nerve Motion: Supine AROM: Hip flexion to 60 with passive imp, Abduction to 25, SLR without assist. Ankle full AROM. - Disposition Ortho POD 2 L DALE 1. Continue: Anticoagulation with Lovenox 30mg subcutaneously q 12 hours for 2 weeks, pneumatic compression, TEDS, and mobility. 2. Continue: Pain management per written orders. Call for modification. 3. Continue: PT/OT BID post L DALE, WBAT, Posterior hip precautions. 4. Continue: Encourage incentive spirometry and bed exercises q hour when awake. 5. Dressing change prn. Currently "OP site" seems to be adequate without hypersensitivity. 6. Disposition: Much improved and doing well. Discharge home today after PT. 7. Follow-up with Dr. Azul as scheduled 8. Appreciate Hospitalist's care and consult.
--- NOTE | 2016-10-25 10:07 | PDOC43 ---
- Subjective Chief Complaint: Left hip pain Eating well, no dyspnea or faintness. - Objective Vital Signs Temperature 98.1 F 10/25/16 07:36 Pulse Rate 87 10/25/16 07:36 Respiratory Rate 16 10/25/16 07:36 Blood Pressure 145/80 10/25/16 07:36 O2 Saturation by Pulse Oximetry 94 10/25/16 07:36 Oxygen Delivery Method Room Air Oxygen Flow Rate 0 Intake and Output 10/24/16 10/25/16 10/26/16 06:59 06:59 06:59 Intake Total 1464 780 Output Total 250 1060 Balance 1214 -280 General: Alert, Oriented x3, Cooperative HEENT: Mucous membr. moist/pink Lungs: Clear to Auscultation Bilaterally Cardiovascular: Regular Rate and Rhythm Abdomen: Soft, Normal Bowel Sounds, No Tenderness, No Masses Extremities: Edema (trace on left), Normal Pulses Wound: Dressing Clean/Dry/Intact, Shadow Drainage Neurological: Normal Speech Psych/Mental Status: Normal Mood Laboratory 10/25/16 05:30 10/23/16 05:30 10/25/16 10/24/16 10/24/16 07:48 21:10 17:24 POC Capillary Glucose 108 H 173 H 109 H 10/24/16 11:32 POC Capillary Glucose 135 H Current Medications: Current meds reviewed in EMR. - Problems: Assessment/Plan (1) Acute blood loss anemia Status: AcuteAssessment/Plan: due to surgery, mild stable and non-symptomatic. (2) GERD (gastroesophageal reflux disease) Qualifiers: Esophagitis presence: esophagitis presence not specified Qualifier Code : (K21.9) Gastro-esophageal reflux disease without esophagitis Status: ChronicAssessment/Plan: Cont Protonix (3) Hypertension Qualifiers: Hypertension type: essential hypertension Qualifier Code: (I10) Essential (primary) hypertension Status: ChronicAssessment/Plan: Parameters written for BP meds (4) Status post left hip replacement Status: AcuteAssessment/Plan: S/P left hip replacement performed on 10/22, making slow progress with therapy but anticipate home today (5) Diabetes Qualifiers: Diabetes mellitus type: type 2 Diabetes mellitus complication status: without complication Diabetes mellitus senior care insulin use: without senior care use Qualifier Code: (E11.9) Type 2 diabetes mellitus without complications Status: ChronicAssessment/Plan: diet controlled (6) History of breast cancer in female Status: ChronicAssessment/Plan: in remission (7) History of pulmonary embolism Status: ChronicAssessment/Plan: On Lovenox for VTE prophylaxis with plans to cont. on discharge( will administer) (8) Post herpetic neuralgia Status: ChronicAssessment/Plan: stable VTE Prophylaxis: Lovenox Disposition: home
--- NOTE | 2016-10-26 12:10 | DS ---
Ashley MACIAS [id number] : 1950 DATE OF ADMISSION: October 22, 2016 DATE OF DISCHARGE: October 25, 2016 DISCHARGE DIAGNOSES: Left hip degenerative joint disease. HOSPITAL PROCEDURES: Left total hip arthroplasty. SURGEON: Je Azul M.D. BRIEF HISTORY: Patient is a 66-year-old female with both clinical and radiographic evidence of advanced DJD of their left hip. For the full history please see the chart note. BRIEF HOSPITAL COURSE: Patient was admitted on, October 22, 2016 Dr. Je Azul performed a left total hip arthroplasty. Patient was moved to the recovery room in stable condition. They were given 4 doses of antibiotic for empiric coverage. DVT prophylaxis consisted of Lovenox subcutaneous injections 30 mg every 12 hours, pneumatic compression devices, ZULEYMA hose and mobility. PT was instituted postop day 1 with left total hip arthroplasty protocol, weightbearing as tolerated. Their incision site remained benign, their vital signs remained stable and they remained neurally and vascularly intact through the duration of the stay. They were discharged home postop day 3 to continue outpatient PT initially with [facility] with left total hip arthroplasty protocol, weightbearing as tolerated keeping total hip precautions in mind. Juan Miguel Randall III, M.D. was consulted to manage perioperative medical comorbidities. For his consultation, see the chart note. DISCHARGE INSTRUCTIONS: 1. Keep the wound site clean and dry, change dressing daily or as needed. 2. Continue the use of ZULEYMA hose bilaterally. 3. Ice pack over the wound site prn. 4. Continue total hip precautions. 5. Outpatient PT initially with [facility] with left total hip arthroplasty protocol, weightbearing as tolerated. MEDICATIONS: 1. Patient is to resume normal preop medications. 2. Anti-coagulation will be with Lovenox 30 mg subcutaneously every 12 hours for 14 days. 3. Pain management will be with Oxycodone, 5mg 1-2 every 4 hours prn for breakthrough pain, and Tramadol, 50mg every 6 hours prn pain. The patient also had Celebrex 200 mg by mouth daily. Vistaril 25 mg 1 to 2 tablets every six hours for nausea and itching. 4. Patient was also advised on utilization of a multi-vitamin with mineral daily as well as Vitamin C, 500mg, daily for 1 month. 5. Patient encouraged to take an iron supplement in the form of ferrous sulfate, 325mg daily for 4 weeks. 6. Colace, 100mg, b.i.d. until regular bowel movement. FOLLOW-UP: Please return to the clinic as scheduled for your first scheduled postop check. Prior to that point in time please call with any questions or concerns. Job [id number] CC: Codie Negrete D.O. [facility] PT
== END 2016-10-25 14:35 | disposition home health service (06) | DRG 470 ==
LOC: OR 10-22 05:31 → MS 10-22 11:50
PROVIDERS: ADMIT Orthopaedic Surgery; ATTEND Orthopaedic Surgery
PROC: 0SRB04A Replacement of Left Hip Joint with Ceramic on Polyethylene Synthetic Substitute, Uncemented, Open Approach (ICD-10-PCS; principal; 2016-10-22)
DX: M16.12 Unilateral primary osteoarthritis, left hip (principal); B02.29 Other postherpetic nervous system involvement; D62 Acute posthemorrhagic anemia; M25.752 Osteophyte, left hip; E11.9 Type 2 diabetes mellitus without complications; I10 Essential (primary) hypertension; Z86.711 Personal history of pulmonary embolism; K21.9 Gastro-esophageal reflux disease without esophagitis; Z85.3 Personal history of malignant neoplasm of breast; R23.8 Other skin changes; E66.9 Obesity, unspecified; J44.9 Chronic obstructive pulmonary disease, unspecified; Z87.891 Personal history of nicotine dependence; Z72.89 Other problems related to lifestyle; Z88.0 Allergy status to penicillin; Z88.5 Allergy status to narcotic agent; Z88.2 Allergy status to sulfonamides; Z88.8 Allergy status to other drugs, medicaments and biological substances; Z91.048 Other nonmedicinal substance allergy status; Z68.37 Body mass index [BMI] 37.0-37.9, adult